=== PATIENT | male | born 1980 | race Caucasian/White ===

== ENCOUNTER 2016-09-16 13:15 | Emergency (ER) | payer SELFPAY ==
[2016-09-16] MEDS ORDERED: NS 0.9% 1000 ML* 1,000 ML IV SCH (14:00)
--- NOTE | 2016-09-16 14:27 | RAD ---
HISTORY: Near syncope COMPARISONS: None VIEWS:1: Single frontal portable view of the chest at 2:05 PM FINDINGS: LINES AND TUBES: None. CARDIOMEDIASTINAL SILHOUETTE: The cardiomediastinal silhouette is normal for portable technique. PLEURA: The costophrenic angles are sharp. No pleural abnormalities are noted. LUNG PARENCHYMA: The lungs are clear. ABDOMEN: The upper abdomen is clear. There is no subphrenic gas. BONES AND SOFT TISSUES: No bone or soft tissue abnormalities are noted. IMPRESSION: NO ACTIVE CARDIOPULMONARY DISEASE.
[2016-09-16 14:30] LABS: Hematocrit 44 % (42-52); Hemoglobin 15.3 g/dl (14.0-18.0); Mean Corpuscular HGB Conc 35 g/dl (31-36); Mean Corpuscular Hemoglobin 31 pg (27-31); Mean Corpuscular Volume 89 fL (80-94); Mean Platelet Volume 7 um3 (7.4-10.4); Red Blood Count 4.97 10^6/ul (4.0-5.4); Red Cell Distribution Width 13 % (10.5-15); White Blood Count 8.1 10^3/ul (3.5-10.8)
[2016-09-16 14:47] LABS: ALT 16 U/L (7-52); AST 19 U/L (13-39); Albumin 4.4 g/dL (3.2-5.2); Alkaline Phosphatase 51 U/L (34-104); Anion Gap 3 mmol/L (2-11); BUN/Creatinine Ratio 13.5 (8-20); Blood Urea Nitrogen 13 mg/dL (6-24); C Reactive Protein < 1.00 mg/L (< 5.00); CO2 Carbon Dioxide 28 mmol/L (22-32); Chloride 106 mmol/L (101-111); Creatine Kinase 164 U/L (10-223); EGFR African American 115.3 (>60); EGFR Non-African American 89.7 (>60); Globulin 2.6 g/dL (2-4); Glucose 98 mg/dL (70-100); Lipase < 10 U/L (11.0-82.0); Magnesium 1.9 mg/dL (1.9-2.7); Potassium 3.3 mmol/L (3.5-5.0); Sodium 137 mmol/L (133-145)
[2016-09-16] MEDS ORDERED: Potassium Chlor TAB* 20 MEQ TAB.ER PO ONE (15:10)
[2016-09-16 15:18] LABS: TSH (Thyroid Stimulating Horm) 1.14 mcIU/mL (0.34-5.60)
--- NOTE | 2016-09-16 17:03 | ED ---
Anatoly Robles Alfonso, scribed for Christian Jansen MD on 09/16/16 at 1357 . Syncope/Near Syncope - HPI Summary HPI Summary: This patient is a 36 year old male [facility] c/o syncope at 1145 today. 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 He states "I am currently feeling better." Sx aggravated by nothing and alleviated by spontaneous resolution. Pt reports LOC, SOB, weakness, face tingling, and arm cramping. Pt denies CP, palpitations, and calf pain. PMHx of WPW diagnosed in 2014. - History Of Current Complaint Chief Complaint: EDSyncope Hx Obtained From: Patient Onset/Duration: Sudden Onset - At 1145 today, Resolved Timing: Constant Context: Loss Of Consciousness Aggravating Factor(s): Nothing Alleviating Factor(s): Spontaneous Resolution Associated Signs And Symptoms: Shortness Of Breath, Weakness, Other - Positive face tingling, and arm cramping; Negative CP, palpitations, and calf pain Frequency: Episodes x___ - 1 - Allergies/Home Medications Allergies/Adverse Reactions: Allergies Allergy/AdvReac Type Severity Reaction Status Date / Time No Known Allergies Allergy Verified 09/16/16 13:44 PMH/Surg Hx/FS Hx/Imm Hx Cardiovascular History: Reports: Other Cardiovascular Problems/Disorders - WPW diagnosed in 2014. Sensory History: Denies: Hx Deafness Opthamlomology History: Denies: Hx Legally Blind Infectious Disease History: No Infectious Disease History: Denies: Traveled Outside the [place] in Last 30 Days - Family History Known Family History: Positive: Hypertension - Grandfather - Social History Alcohol Use: Daily Substance Use Type: Reports: None Smoking Status (MU): Never Smoked Tobacco Review of Systems Negative: Palpitations, Chest Pain Positive: Shortness Of Breath Positive: Other - Negative calf pain Neurological: Other - Positive LOC, face tingling, and arm cramping Positive: Weakness, Syncope - at 1145 today All Other Systems Reviewed And Are Negative: Yes Physical Exam Triage Information Reviewed: Yes Vital Signs On Initial Exam: Initial Vitals Temp Pulse Resp BP Pulse Ox 98.6 F 76 15 139/84 93 09/16/16 13:18 09/16/16 13:18 09/16/16 13:18 09/16/16 13:18 09/16/16 13:18 Vital Signs Reviewed: Yes Appearance: Positive: Well-Appearing, No Pain Distress Skin: Positive: Warm, Skin Color Reflects Adequate Perfusion, Dry Head/Face: Positive: Normal Head/Face Inspection Eyes: Positive: EOMI, SIMON ENT: Positive: Normal ENT inspection Neck: Positive: Supple, Nontender Respiratory/Lung Sounds: Positive: Clear to Auscultation, Breath Sounds Present Cardiovascular: Positive: RRR Abdomen Description: Positive: Nontender, Soft Bowel Sounds: Positive: Present Musculoskeletal: Positive: Normal, Strength/ROM Intact Neurological: Positive: Normal, Sensory/Motor Intact, Alert, Oriented to Person Place, Time Psychiatric: Positive: Affect/Mood Appropriate - Vlad Coma Scale Coma Scale Total: 15 Diagnostics - Vital Signs Vital Signs Temp Pulse Resp BP Pulse Ox 09/16/16 13:18 98.6 F 76 15 139/84 93 - Laboratory Lab Results: Lab Results 09/16/16 09/16/16 09/16/16 Range/Units 14:20 14:20 14:20 WBC 8.1 (3.5-10.8) 10^3/ul RBC 4.97 (4.0-5.4) 10^6/ul Hgb 15.3 (14.0-18.0) g/dl Hct 44 (42-52) % MCV 89 (80-94) fL MCH 31 (27-31) pg MCHC 35 (31-36) g/dl RDW 13 (10.5-15) % Plt Count 195 (150-450) 10^3/ul MPV 7 L (7.4-10.4) um3 Neut % (Auto) 74.5 (38-83) % Lymph % (Auto) 17.6 L (25-47) % [place] % (Auto) 6.7 (1-9) % Eos % (Auto) 0.9 (0-6) % Baso % (Auto) 0.3 (0-2) % Absolute Neuts (auto) 6.0 (1.5-7.7) 10^3/ul Absolute Lymphs (auto) 1.4 (1.0-4.8) 10^3/ul Absolute Monos (auto) 0.5 (0-0.8) 10^3/ul Absolute Eos (auto) 0.1 (0-0.6) 10^3/ul Absolute Basos (auto) 0 (0-0.2) 10^3/ul Absolute Nucleated RBC 0 10^3/ul Nucleated RBC % 0 INR (Anticoag Therapy) 0.92 (0.89-1.11) APTT 27.8 (26.0-36.3) seconds Sodium 137 (133-145) mmol/L Potassium 3.3 L (3.5-5.0) mmol/L Chloride 106 (101-111) mmol/L Carbon Dioxide 28 (22-32) mmol/L Anion Gap 3 (2-11) mmol/L BUN 13 (6-24) mg/dL Creatinine 0.96 (0.67-1.17) mg/dL Est GFR ( Amer) 115.3 (>60) Est GFR (Non-Af Amer) 89.7 (>60) BUN/Creatinine Ratio 13.5 (8-20) Glucose 98 (70-100) mg/dL Lactic Acid (0.5-2.0) mmol/L Calcium 9.0 (8.6-10.3) mg/dL Magnesium 1.9 (1.9-2.7) mg/dL Total Bilirubin 0.80 (0.2-1.0) mg/dL AST 19 (13-39) U/L ALT 16 (7-52) U/L Alkaline Phosphatase 51 (34-104) U/L Total Creatine Kinase 164 (10-223) U/L CK-MB (CK-2) 2.2 (0.6-6.3) ng/mL Troponin I 0.00 (<0.04) ng/mL C-Reactive Protein < 1.00 (< 5.00) mg/L B-Natriuretic Peptide ( - 100) pg/mL Total Protein 7.0 (6.4-8.9) g/dL Albumin 4.4 (3.2-5.2) g/dL Globulin 2.6 (2-4) g/dL Albumin/Globulin Ratio 1.7 (1-3) Lipase < 10 L (11.0-82.0) U/L TSH 1.14 (0.34-5.60) mcIU/mL 09/16/16 09/16/16 Range/Units 14:20 14:20 WBC (3.5-10.8) 10^3/ul RBC (4.0-5.4) 10^6/ul Hgb (14.0-18.0) g/dl Hct (42-52) % MCV (80-94) fL MCH (27-31) pg MCHC (31-36) g/dl RDW (10.5-15) % Plt Count (150-450) 10^3/ul MPV (7.4-10.4) um3 Neut % (Auto) (38-83) % Lymph % (Auto) (25-47) % [place] % (Auto) (1-9) % Eos % (Auto) (0-6) % Baso % (Auto) (0-2) % Absolute Neuts (auto) (1.5-7.7) 10^3/ul Absolute Lymphs (auto) (1.0-4.8) 10^3/ul Absolute Monos (auto) (0-0.8) 10^3/ul Absolute Eos (auto) (0-0.6) 10^3/ul Absolute Basos (auto) (0-0.2) 10^3/ul Absolute Nucleated RBC 10^3/ul Nucleated RBC % INR (Anticoag Therapy) (0.89-1.11) APTT (26.0-36.3) seconds Sodium (133-145) mmol/L Potassium (3.5-5.0) mmol/L Chloride (101-111) mmol/L Carbon Dioxide (22-32) mmol/L Anion Gap (2-11) mmol/L BUN (6-24) mg/dL Creatinine (0.67-1.17) mg/dL Est GFR ( Amer) (>60) Est GFR (Non-Af Amer) (>60) BUN/Creatinine Ratio (8-20) Glucose (70-100) mg/dL Lactic Acid 0.7 (0.5-2.0) mmol/L Calcium (8.6-10.3) mg/dL Magnesium (1.9-2.7) mg/dL Total Bilirubin (0.2-1.0) mg/dL AST (13-39) U/L ALT (7-52) U/L Alkaline Phosphatase (34-104) U/L Total Creatine Kinase (10-223) U/L CK-MB (CK-2) (0.6-6.3) ng/mL Troponin I (<0.04) ng/mL C-Reactive Protein (< 5.00) mg/L B-Natriuretic Peptide 20 ( - 100) pg/mL Total Protein (6.4-8.9) g/dL Albumin (3.2-5.2) g/dL Globulin (2-4) g/dL Albumin/Globulin Ratio (1-3) Lipase (11.0-82.0) U/L TSH (0.34-5.60) mcIU/mL Result Diagrams: 09/16/16 14:20 09/16/16 14:20 Lab Statement: Any lab studies that have been ordered have been reviewed, and results considered in the medical decision making process. - Radiology CXR Radiology Interpretation Completed By: Radiologist - NO ACTIVE CARDIOPULMONARY DISEASE. - EKG 1329 Cardiac Rate: NL - BPM 62 Ectopy: : PVCs EKG Interpretation: LBBB and WPW Re-Evaluation - Re-Evaluation First Eval Re-Evaluation Time: 16:35 Comment: Discussed lab results and [employer] loop recorder interpretation with the patient. He understand and agrees with discharge plan. Course/Dx Course Of Treatment: NO CRITICAL CARE TIME. DISUSSED WITH [facility], DR TEJEDA, . THE [employer] LOOP RECORDER WAS INTERROGATED. BECAUSE THERE WAS NO EVIDENCE OF A HR > 200, DR TEJEDA STATED OUT PATIENT FOLLOW UP SOON POSSSIBLE WAS APPROPRIATE. THIS WAS DISCUSSED WITH THE PATIENT. DISCHARGE HOME STABLE. - Diagnoses Provider Diagnoses: Syncope, WPW (Wuwwy-Smlnqgcxk-Ichnb syndrome) - Physician Notifications Discussed Care of Patient With: Luís López Time Discussed With Above Provider: 14:36 Instructed by Provider To: Other - Consulted Dr. López (filament shaper) who recommends continuing the work up and consulting the patient's filament shaper. Consulted [facility] at [phone] Tejeda is not present and they will attempt to reach him. Consulted Dr. Tejeda (filament shaper) at [phone] who stated he will consult electrophysiology and call back. Dr. Tejeda ( filament shaper) called back at [phone] recommending contacting the [employer] pharmaceutical specialty representative. After getting the [employer] loop recorder interpretation, consulted Dr. Tejeda (filament shaper) who stated based on the [employer] interpretation the patient is stable to be discharged home and follow up with their office soon. Discharge - Discharge Plan Condition: Stable Disposition: HOME Patient Education Materials: Syncope (ED), Qdgrg-[id number]-Aqtgi Syndrome (ED) Referrals: No Primary Care Phys,NOPCP [Primary Care Provider] - Additional Instructions: FOLLOW UP WITH YOUR UNDERWATER PHOTOGRAPHER ON MONDAY. CALL [facility] Monday, , TO BE SEE SOON POSSIBLE. LET THEM KNOW YOU WERE SEEN IN THE EMERGENCY DEPARTMENT ON 09/16/16 FOR A SYNCOPAL EPISODE AND THE EMERGENCY DEPARTMENT DOCTOR SPOKE WITH DR TEJEDA. DR TEJEDA WANTS YOU SEEN IN THE OFFICE SOON POSSIBLE IN THE OFFICE. RETURN TO THE EMERGENCY DEPARTMENT FOR ANY WORSENING OF YOUR CONDITION; CHEST PAIN, SHORTNESS OF BREATH, YOU FEEL LIKE YOU ARE GOING TO PASS OUT OR QUESTIONS OR CONCERNS. The documentation as recorded by the Anatoly summers Alfonso accurately reflects the service I personally performed and the decisions made by me, Christian Jansen MD.
[2016-09-16 17:07] VITALS: BP 133/96
== END 2016-09-16 17:17 | disposition home or self-care (01) ==
LOC: ED 13:15
DX: R06.02 Shortness of breath (principal); R53.1 Weakness; R55 Syncope and collapse; I45.6 Pre-excitation syndrome
CPT/HCPCS: 36415; 71010; 80053; 82550; 82553; 83605; 83690; 83735; 83880; 84443; 84484; 85025; 85610; 85730; 86140; 93005; 96360; 99283; A9270-GY